=== PATIENT | female | born 1955 | race Caucasian/White ===

== ENCOUNTER 2017-12-03 16:27 | Observation (INO) ==
--- NOTE | 2017-12-03 17:02 | Emergency Department Note ---
Disposition Clinical Impression: Hyperglycemia, Generalized weakness Urinary tract infection Qualifiers: Urinary tract infection type: acute cystitis Hematuria presence: without hematuria Qualified Code(s): N30.00 - Acute cystitis without hematuria Disposition: Admitted As Inpatient Condition: Fair Referrals: Jesi Ge CNP [Primary Care Provider] - Time of Disposition: 18:07 Weakness HPI - General Chief complaint: ED General Medical Stated complaint: decreased energy, feeling tired Time Seen by Provider: 12/03/17 16:56 Source: patient Mode of arrival: private vehicle Limitations: no limitations Nursing Notes Reviewed: Yes Vital Signs Reviewed: Yes - History of Present Illness HPI Narrative: Patient has been sent here from her family doctor's office. She probably has been feeling poorly for about a month. She is noted in the doctor's office to have a hemoglobin A1c of 12.2. Her blood pressure standing was 102/60 with a heart rate of 71, sitting up blood pressure of 90/54 and a heart rate 72 and standing a blood pressure of 80/45. There are concerned for her dizziness with standing with the postural hypotension and advised her to come in for evaluation. They note she does have a history of significant hypertension and diabetes. They could not identify any other localizing complaints with her other than fatigue, dizziness and occasional headaches. Patient arrives to our emergency department stating that she has decreased energy and "just feels blah". She states this has been ongoing for a month. She has had decreased appetite and has lost about 14 pounds. She admits to feeling dizzy with standing but states she has not passed out or fallen. She denies any chest pain, palpitations or increased shortness of breath. She denies cough or fevers but has had some chills. She denies abdominal pain, nausea, vomiting or diarrhea. She denies bloody or black stools. She admits to occasional constipation. She denies any urinary complaints including increased frequency or dysuria or urgency. She denies increased thirst but has been drinking a lot per usual. She denies any headache or visual changes at this time but has had some headaches over the weeks. She has no localized numbness, tingling or weakness. She states she feels "weak all over". She denies episodes like this before. She denies any change in medications. She states throughout this month her blood sugars have been running "high" such that the most recent she had was 465. She has not had any adjustment of her diabetic medicines and states she has been taking them regularly. Patient does have history of previous DVT for which she is on Eliquis. Pt Subjective Complaint: generalized weakness/fatigue Onset (ago): week(s) Duration: constant, gradually worsening Location: generalized Pain Scale: 0 Improves with: none Worsens with: exertion Associated symptoms: Reports: loss of appetite. Denies: chest pain, confusion, dark stools, diaphoresis, dysuria, easy bruising, fever/chills, headaches, nausea/vomiting, myalgias, rash, shortness of breath, syncope - Related Data Home Medications Medication Instructions Recorded Confirmed Aspirin 81 mg PO DAILY 04/20/16 12/03/17 Gabapentin [Neurontin] 100 mg PO TID 04/20/16 12/03/17 Insulin ASPART [Novolog Flexpen] 30 unit SQ TIDWM MDD per sliding 04/20/1612/03 scale Metoprolol XL (24 HR) Succ [Toprol 25 mg PO DAILY 04/20/16 12/03/17 Xl] Nitroglycerin [Nitrostat] 0.4 mg SL AD PRN 04/20/16 12/03/17 Rosuvastatin Calcium [Crestor] 40 mg PO DAILY 04/20/16 12/03/17 Apixaban [Eliquis] 5 mg PO BID 05/29/16 12/03/17 Atarax 25 - 50 mg PO HS 08/02/16 12/03/17 Lantus Solostar 55 units SQ HS 08/02/16 12/03/17 Nexium 40 mg PO DAILY 08/02/16 12/03/17 Insulin LISPRO [HumaLOG] 5 units SQ TIDWM PRN 06/19/17 06/19/17 Citalopram Hydrobromide 10 mg PO DAILY 12/03/17 12/03/17 [Citalopram HBr] Previous Rx's Medication Instructions Recorded OxyCODONE/APAP 5/325 [Percocet 1 each PO Q4HR PRN #30 tablet 06/07/16 5/325 MG] HYDROcodone/Acet 5/325 mg [[place] 1 tab PO Q4H PRN 2 Days #10 tab 06/19/17 5-325 mg] Allergies Allergy/AdvReac Type Severity Reaction Status Date / Time iodine Allergy Hives Verified 12/03/17 16:28 tramadol AdvReac Vomiting Verified 12/03/17 16:28 bandaids AdvReac Redness of Uncoded 12/03/17 16:28 Skin All systems ED: reviewed and negative except as stated. Past Medical History - Past Medical History Attestation: Yes The following information was validated with the patient. Source: patient, nursing notes reviewed, other (Family care provider) Medical history: Reports: arthritis, coronary artery disease, DVT, diabetes, GERD, hyperlipidemia, hypertension Surgical history: Reports: coronary bypass (CABG), hysterectomy, other (Ovarian cystectomy) Psychiatric history: Reports: no psych history - Social History Smoking Status: Never smoker Smokeless Tobacco Status: No Alcohol use: Reports: occasionally Drug use: Reports: none Physical Exam - General Limitations: no limitations General appearance: alert, in no apparent distress - Head Head exam: atraumatic, normocephalic, normal inspection - Eye Eye exam: Present: normal appearance, PERRL, EOMI. Absent: scleral icterus, conjunctival injection - ENT ENT exam: normal exam, normal oropharynx, mucous membranes moist - Neck Neck exam: Present: normal inspection, full ROM, trachea midline - Chest Chest inspection: Present: normal inspection, symmetric chest wall rise - Respiratory Respiratory exam: Present: normal lung sounds bilaterally. Absent: respiratory distress, wheezes, prolonged expiratory phase - Cardiovascular Cardiovascular exam: Present: regular rate, normal rhythm, normal heart sounds. Absent: tachycardia - Abdominal Exam Abdominal exam: Present: soft, Non-Tender, normal bowel sounds. Absent: tenderness, distention, guarding, rebound, rigidity - Extremities Exam Extremities exam: Present: normal inspection, full ROM, normal capillary refill. Absent: tenderness, pedal edema, calf tenderness - Expanded Lower Extremity Exam Neurovascular/Tendon exam: Present: normal capillary refill. Absent: motor deficit, sensory deficit, tendon deficit Gait: observed and normal - Back Exam Back exam: Present: normal inspection, full ROM. Absent: tenderness, CVA tenderness (R), CVA tenderness (L) - Neurological Exam Neurological exam: Present: alert, oriented X3, normal gait - Psychiatric Psychiatric exam: Present: normal affect, normal mood. Absent: agitated, anxious - Skin Skin exam: Present: warm, dry, intact, normal color. Absent: rash, diaphoresis , pallor Course Course Narrative: 170: After extensive history on the patient does sound like her main problem will be diabetes out of control. With this she states she has had weight loss and persistent readings of "high" on her blood sugar monitor at home for about a month. She has been written for a metabolic evaluation with a urinalysis and Accu-Chek. She has already had a hemoglobin A1c markedly elevated at 12.2 at the doctor's office. If she continues to show significant hyperglycemia here will need to initiate coverage and likely IV fluids. 180: Ears discussed with the patient and Dr. Garcia. She has been brought in with verbal orders for observation, antibiotic treatment and continuation of IV fluids. Vital Signs Temperature 97.5 F L 12/03/17 16:36 Pulse Rate 80 12/03/17 16:36 Respiratory Rate 16 12/03/17 16:36 Blood Pressure 112/65 12/03/17 16:36 O2 Sat by Pulse Oximetry 93 12/03/17 16:36 Temperature 97.5 F L 12/03/17 16:36 Pulse Rate 67 12/03/17 17:39 Respiratory Rate 18 12/03/17 17:39 Blood Pressure 134/63 12/03/17 17:39 O2 Sat by Pulse Oximetry 97 12/03/17 17:39 Oxygen Delivery Oxygen Delivery Room Air Weakness - Differential Diagnosis Differential Diagnosis: Likely: anemia, sepsis/infection, dehydration, medication effect, metabolic - Medical Records Medical records reviewed: Yes I reviewed the patient's medical records. - Lab Data Lab results reviewed: Yes I reviewed the patient's lab results. Result diagrams: 12/03/17 17:08 12/03/17 17:08 Lab Results 12/03/17 12/03/17 12/03/17 Range/Units 16:50 17:08 17:08 WBC 11.2 H (4.3-11.1) K/mcL RBC 4.53 (3.82-4.97) M/mcL Hgb 12.5 (11.5-15.4) g/dL Hct 38.6 (35.3-44.9) % MCV 85.2 (83.0-100.0) fL MCH 27.6 L (28.0-33.3) pg MCHC 32.4 (31.6-35.5) g/dL RDW 13.0 (11.5-14.5) % Plt Count 308 (140-400) K/mcL MPV 11.1 (9.4-12.4) fL Immature Gran % 0.3 (0-4) % Seg Neutrophils % 67.5 % Lymphocytes % 22.3 % Monocytes % 4.4 % Eosinophils % 4.9 % Basophils % 0.6 % Neutrophils # 7.6 (1.6-8.9) K/mcL Lymphocytes # 2.5 (0.6-4.6) K/mcL Monocytes # 0.5 (0.0-1.3) K/mcL Eosinophils # 0.6 (0.0-0.6) K/mcL Basophils # 0.1 (0.0-0.2) K/mcL Sodium 134 L (136-145) mEq/L Potassium 4.1 (3.5-5.1) mEq/L Chloride 100 (98-107) mEq/L Carbon Dioxide 25 (23-29) mEq/L BUN 29 H (8-23) mg/dL Creatinine 1.62 H (0.60-1.20) mg/dL Est GFR ( Amer) 39 L (> 60) Est GFR (Non-Af Amer) 32 L (> 60) BUN/Creatinine Ratio 18 (6-26) Glucose 260 H (70-105) mg/dL Calculated Osmolality 293 (280-300) Calcium 9.9 (8.6-10.3) mg/dL Total Bilirubin 0.6 (0.3-1.0) mg/dL Direct Bilirubin 0.1 (0.0-0.2) mg/dL Indirect Bilirubin 0.5 (0.0-1.2) mg/dL AST 19 (13-39) Units/L ALT 18 (7-52) Units/L Alkaline Phosphatase 52 (34-104) Units/L Troponin I < 0.03 (< 0.04) ng/mL Serum Total Protein 7.9 (6.4-8.9) g/dL Albumin 4.0 (3.5-5.7) g/dL Globulin 3.9 H (2.4-3.5) g/dL Albumin/Globulin Ratio 1.0 L (1.1-2.2) Urine Color Yellow (Yellow) Urine Clarity Cloudy A (Clear) Urine pH 5.0 (5.0-8.0) pH Units Ur Specific [place] >= 1.030 H (1.010-1.025) Urine Protein >=300 H (Neg-Trace) mg/dL Urine Glucose (UA) 100 H (Normal) mg/dL Urine Ketones Negative (Negative) mg/dL Urine Blood Small H (Negative) Urine Nitrite Negative (Negative) Urine Bilirubin Small H (Negative) Urine Urobilinogen Normal (Normal) mg/dL Ur Leukocyte Esterase Trace H (Negative) Urine Microscopic RBC 0-3 (0-3) per hpf Urine Microscopic WBC 30-50 H (0-3) per hpf Ur Squamous Epith Cells Many H (None-Few) per lpf Calcium Oxalate Crystal Present Urine Bacteria Many H (None-Few) per hpf Hyaline Casts Few (None-Few) per lpf Granular Casts Many H (None Seen) per lpf Urine Yeast Moderate H (None Seen) per hpf Ur Culture Indicated? NO. A (NO) - EKG Data EKG attestation: Yes I reviewed and interpreted this EKG. EKG shows normal: sinus rhythm, axis, intervals, QRS complexes Rate: normal (70) T wave inversions noted in: I, aVL, v2 Interpretation: no acute changes, nonspecific ST-T wave changes
[2017-12-03 17:06] LABS: Bilirubin,Urine Small (Negative); Blood,Urine Small (Negative); Clarity,Urine Cloudy (Clear); Color,Urine Yellow (Yellow); Glucose,Urine (UA) 100 mg/dL (Normal); Ketones,Urine Negative (Negative); Leukocyte Esterase,Urine Trace (Negative); Nitrite,Urine Negative (Negative); Protein,Urine >=300 mg/dL (Neg-Trace); Specific Gravity,Urine >= 1.030 (1.010-1.025); Urobilinogen,Urine Normal (Normal)
[2017-12-03] MEDS ORDERED: 0.9 % Sodium Chloride 1,000 ML IVC ONE (17:15)
[2017-12-03 17:16] LABS: Basophils # 0.1 K/mcL (0.0-0.2); Basophils % 0.6 %; Eosinophils # 0.6 K/mcL (0.0-0.6); Eosinophils % 4.9 %; Hematocrit 38.6 % (35.3-44.9); Hemoglobin 12.5 g/dL (11.5-15.4); Immature Granulocytes % 0.3 % (0-4); Lymphocytes # 2.5 K/mcL (0.6-4.6); Lymphocytes % 22.3 %; Mean Corpuscular HGB Conc 32.4 g/dL (31.6-35.5); Mean Corpuscular Hemoglobin 27.6 pg (28.0-33.3); Mean Corpuscular Volume 85.2 fL (83.0-100.0); Mean Platelet Volume 11.1 fL (9.4-12.4); Monocytes # 0.5 K/mcL (0.0-1.3); Monocytes % 4.4 %; Neutrophils # 7.6 K/mcL (1.6-8.9); Platelet Count 308 K/mcL (140-400); Red Blood Count 4.53 M/mcL (3.82-4.97); Segmented Neutrophils % 67.5 %
[2017-12-03 17:18] LABS: Bacteria,Urine Many per hpf (None-Few); Granular Casts,Urine Many per lpf (None Seen); Hyaline Casts,Urine Few per lpf (None-Few); RBC,Urine 0-3 per hpf (0-3); Squamous Epithelial Cell,Urine Many per lpf (None-Few); WBC,Urine 30-50 per hpf (0-3); Yeast,Urine Moderate per hpf (None Seen)
[2017-12-03 17:19] LABS: Calcium Oxalate Crystals,Urine Present
[2017-12-03] MEDS ORDERED: cefTRIAXone 2,000 MG in 0.9 % Sodium Chloride Mini Bag 100 ML IVPB ONE (17:29)
[2017-12-03] MEDS ORDERED: Insulin Regular, Human 100 UNIT/ML SQ ONE (17:30)
[2017-12-03 17:37] LABS: Alanine Aminotransferase 18 Units/L (7-52); Alkaline Phosphatase 52 Units/L (34-104); Aspartate Amino Transferase 19 Units/L (13-39); BUN/Creatinine Ratio 18 (6-26); Bilirubin,Direct 0.1 mg/dL (0.0-0.2); Bilirubin,Indirect 0.5 mg/dL (0.0-1.2); Bilirubin,Total 0.6 mg/dL (0.3-1.0); Blood Urea Nitrogen 29 mg/dL (8-23); Calcium 9.9 mg/dL (8.6-10.3); Carbon Dioxide 25 mEq/L (23-29); Chloride 100 mEq/L (98-107); Globulin 3.9 g/dL (2.4-3.5); Glucose 260 mg/dL (70-105); Osmolality,Calculated 293 (280-300); Potassium 4.1 mEq/L (3.5-5.1); Sodium 134 mEq/L (136-145); Total Protein 7.9 g/dL (6.4-8.9); eGFR For Non-African Americans 32 (> 60)
[2017-12-03 17:43] LABS: Troponin I < 0.03 ng/mL (< 0.04)
[2017-12-03] MEDS ORDERED: Naloxone 0.4 MG/ML INJ IVP PRN (18:21)
[2017-12-03] MEDS ORDERED: *HR* Dextrose 50 % in Water (Syg) 50 ML SYRINGE IVP PRN (18:21)
[2017-12-03] MEDS ORDERED: D5% in Water 1,000 ML IVC PRN (18:21)
[2017-12-03] MEDS ORDERED: Nitroglycerin 0.4 MG TAB.SUBL SL PRN (18:21)
[2017-12-03] MEDS ORDERED: *HR* OxyCODONE/APAP 5/325 TABLET PO PRN (18:21)
[2017-12-03] MEDS ORDERED: Dextrose Gel 15 GM/37.5 ML TUBE PO PRN ×2 (18:21)
[2017-12-03] MEDS: 0.9 % Sodium Chloride 1,000 ML IVC SCH (20:55)
[2017-12-03] MEDS: Gabapentin 100 MG CAPSULE PO SCH (20:56)
[2017-12-03] MEDS: hydrOXYzine pamoate 25 MG CAPSULE PO SCH (20:56)
[2017-12-03] MEDS: Apixaban 5 MG TABLET PO SCH (20:56)
[2017-12-03] MEDS ORDERED: Insulin DETEMIR 100 UNIT/ML per UNIT SQ ONE (21:00)
[2017-12-04] MEDS: 0.9 % Sodium Chloride 1,000 ML IVC SCH (05:20)
[2017-12-04] MEDS ORDERED: Insulin LISPRO 300 UNITS/3 ML VIAL SQ SCH ×3 (07:30→08:18)
[2017-12-04] MEDS ORDERED: Metoprolol XL (24 HR) Succ 25 MG TAB.ER.24H PO SCH (09:00)
[2017-12-04] MEDS ORDERED: cefTRIAXone 2,000 MG in 0.9 % Sodium Chloride Mini Bag 100 ML IVPB SCH (09:00)
[2017-12-04] MEDS: Aspirin 81 MG TAB.CHEW PO SCH (09:01)
[2017-12-04] MEDS: Gabapentin 100 MG CAPSULE PO SCH ×3 (09:02→22:38)
[2017-12-04] MEDS: Apixaban 5 MG TABLET PO SCH ×2 (09:02→22:38)
[2017-12-04] MEDS: Insulin LISPRO 300 UNITS/3 ML VIAL SQ SCH ×3 (09:14→16:59)
--- NOTE | 2017-12-04 11:46 | Internal Med History&Physical ---
Date of Encounter: 12/04/17 Time of Encounter: 11:10 Assessment and Plan (1) Orthostatic hypotension Current visit: Yes Status: Acute Probably multifactorial etiology including antihypertensive medication and dehydration. IV fluids have been ordered and antihypertensive medication will be held. Orthostatic vital signs will be rechecked in a.m. (2) Azotemia Current visit: Yes Status: Acute IV fluids have been ordered. Labs will be rechecked in a.m. (3) DM type 2 (diabetes mellitus, type 2) Current visit: Yes Status: Chronic Check hemoglobin A1c in a.m. Continue Levemir/Lantus and Accu-Cheks with SSI. 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 Urine appeared to be contaminated specimen. She was started empirically on Rocephin in emergency room. Qualifiers: Urinary tract infection type: acute cystitis Hematuria presence: without hematuria Qualified Code(s): N30.00 - Acute cystitis without hematuria Internal Medicine - H&P: HPI Chief complaint: Hypotension, weakness Admitted From: Emergency Dept Plans for Post Hospital Care: Home History of present illness: Ms. Martino is a 62 year old female who was sent from her PCP office to emergency room for evaluation after she was found at a routine office visit to have orthostatic hypotensive. The emergency room report states blood pressure decreased from 102/60 sitting to 80/45 standing up. She was evaluated emergency room and found to have acute on chronic azotemia and possible UTI. She was admitted to [facility] floor for ongoing care needs. Cardiovascular history is significant for hypertension. She had 2 vessel CABG May 2016 with STOCK to LAD and SVG to RCA. Echocardiogram April 2016 showed LVEF of 60-65% with mild LV diastolic dysfunction and E/A ratio of 0.6. No significant valvular abnormalities were seen. There was reported LAE but no left atrial measurements were recorded. She reports she had DVT following the CABG surgery and was placed on Eliquis which has not been discontinued. She denies pulmonary embolus. Past Med Surg Social Fam HX - Past Medical History Medical history: arthritis, coronary artery disease, DVT, diabetes, GERD, hyperlipidemia, hypertension Additional medical history: HTN, Hyperlipidemia, L peroneal DVT, lower extremity neuropathy Psychiatric history: no psych history - Past Surgical History Surgical History: coronary bypass (CABG), hysterectomy, other Additional surgical history: ovarian cyst removal. heart bypass - Social History Smoking Status: Never smoker Smokeless Tobacco Status: No Alcohol use: occasionally Drug use: none Internal Medicine - H&P: Meds Aspirin 81 mg PO DAILY 04/20/16 [History] Gabapentin [Neurontin] 100 mg PO TID 04/20/16 [History] Insulin ASPART [Novolog Flexpen] 30 unit SQ TIDWM MDD per sliding scale [History] Metoprolol XL (24 HR) Succ [Toprol Xl] 25 mg PO DAILY 04/20/16 [History] Nitroglycerin [Nitrostat] 0.4 mg SL AD PRN 04/20/16 [History] Rosuvastatin Calcium [Crestor] 40 mg PO DAILY 04/20/16 [History] Apixaban [Eliquis] 5 mg PO BID 05/29/16 [History] OxyCODONE/APAP 5/325 [Percocet 5/325 MG] 1 each PO Q4HR PRN #30 tablet 06/07/16 [Rx] Atarax 25 - 50 mg PO HS 08/02/16 [History] Lantus Solostar 55 units SQ HS 08/02/16 [History] Nexium 40 mg PO DAILY 08/02/16 [History] HYDROcodone/Acet 5/325 mg [[place] 5-325 mg] 1 tab PO Q4H PRN 2 Days #10 tab 06/19 [Rx] Insulin LISPRO [HumaLOG] 5 units SQ TIDWM PRN 06/19/17 [History] Citalopram Hydrobromide [Citalopram HBr] 10 mg PO DAILY 12/03/17 [History] 3 Allergy/AdvReac Type Severity Reaction Status Date / Time iodine Allergy Hives Verified 12/03/17 16:28 tramadol AdvReac Vomiting Verified 12/03/17 16:28 bandaids AdvReac Redness of Uncoded 12/03/17 16:28 Skin All Systems PM: A 10-system review of systems was performed and is negative for pertinent findings except as documented above in the HPI. Review of systems: Gen.: She states her weight has been stable the past few months Cardiovascular: As per history of present illness Respiratory: She is a lifelong nonsmoker. She reports she has oxygen at home but is uncertain of the qualifying diagnosis. She has STEPHANI and has used CPAP at bedtime for approximately one year. GI: She has GERD. She denies disorders of her liver gallbladder or exocrine pancreas : She denies hematuria dysuria or kidney stones. She was unaware she had chronic kidney disease. Neurologic: She denies large distribution strokes or seizures. Endocrine: She was diagnosed with DM 2 approximate 2013. She has hyperlipidemia but denies thyroid disease. Hematology/oncology: She denies blood disorders cancers or anemia Psychiatric: She has depression but denies anxiety or other mental health issues [place] skeletal: She has DJD and significant right hip. She denies gout or other bone joint or muscle disorders. - Constitutional Vitals: Temp Pulse Resp BP Pulse Ox 98.0 F 66 16 119/49 92 12/04/17 06:37 12/04/17 06:37 12/04/17 06:37 12/04/17 06:37 12/04/17 06:37 Exam: Gen.: She is a well-developed well-nourished female resting comfortably in bed who appears in no acute distress at present time. HEENT: Head is atraumatic and normal cephalic. Eyes: EOMI. There is no scleral icterus. Mouth: Mucosa is moist. Neck: Supple and nontender. There is no thyromegaly or adenopathy noted. Heart: Regular without murmurs gallops or ectopics Lungs: No wheezes or crackles are heard. Abdomen: Soft and nontender. No masses or guarding are noted. Extremities: There is no cyanosis edema or clubbing noted. Dorsalis pedis and posterior tibial pulses are 1-2 over 2 bilaterally. Neurologic: Mental status: She is talkative and seems to be a reliable historian. Cranial nerves: Smile is symmetric. Forehead wrinkles bilaterally. Tongue protrudes midline. EOMI. Motor: There is no pronator drift. Cerebellar: Finger to nose is intact bilaterally. Skin: Warm and dry Internal Med - H&P Results - Labs CBC & Chem 7: 12/03/17 17:08 12/03/17 17:08
[2017-12-04] MEDS ORDERED: cefTRIAXone 2,000 MG in Water for inj. (sterile) 20 ML 20 ML IVP SCH (17:00)
[2017-12-04] MEDS ORDERED: Insulin DETEMIR 100 UNIT/ML X5UNITS SQ SCH ×2 (21:00)
[2017-12-04] MEDS: Lactobacillus 1 EACH CAP.SPRINK PO SCH (22:38)
[2017-12-04] MEDS: hydrOXYzine pamoate 25 MG CAPSULE PO SCH (22:39)
[2017-12-04] MEDS ORDERED: Permethrin Cream Rinse 60 ML LIQUID TP ONE (23:31)
[2017-12-05 06:11] LABS: Basophils # 0.1 K/mcL (0.0-0.2); Basophils % 0.8 %; Eosinophils # 0.4 K/mcL (0.0-0.6); Eosinophils % 6.8 %; Hematocrit 33.3 % (35.3-44.9); Hemoglobin 10.8 g/dL (11.5-15.4); Immature Granulocytes % 0.3 % (0-4); Lymphocytes # 2.2 K/mcL (0.6-4.6); Lymphocytes % 34.8 %; Mean Corpuscular HGB Conc 32.4 g/dL (31.6-35.5); Mean Corpuscular Hemoglobin 27.9 pg (28.0-33.3); Mean Platelet Volume 11.2 fL (9.4-12.4); Monocytes # 0.4 K/mcL (0.0-1.3); Neutrophils # 3.2 K/mcL (1.6-8.9); Platelet Count 214 K/mcL (140-400); Red Blood Count 3.87 M/mcL (3.82-4.97); Red Cell Distribution Width 12.9 % (11.5-14.5); Segmented Neutrophils % 50.3 %
[2017-12-05 06:26] LABS: Potassium 3.9 mEq/L (3.5-5.1)
[2017-12-05] MEDS: Aspirin 81 MG TAB.CHEW PO SCH (09:33)
[2017-12-05] MEDS: Gabapentin 100 MG CAPSULE PO SCH ×2 (09:33→15:30)
[2017-12-05] MEDS: Apixaban 5 MG TABLET PO SCH (09:34)
[2017-12-05] MEDS: Insulin LISPRO 300 UNITS/3 ML VIAL SQ SCH ×2 (09:35→12:17)
[2017-12-05] MEDS: Lactobacillus 1 EACH CAP.SPRINK PO SCH (09:35)
[2017-12-05 09:43] LABS: Estimated Average Glucose 286 mg/dl; Hemoglobin A1C 11.6 %
[2017-12-05 15:09] VITALS: BP 134/57
--- NOTE | 2017-12-05 15:32 | Discharge Summary ---
Date of Encounter: 12/05/17 Time of Encounter: 15:20 - Discharge Diagnosis (1) Orthostatic hypotension Priority: Primary Status: Resolved (2) DM type 2 (diabetes mellitus, type 2) Priority: Secondary Status: Chronic Qualifiers: Diabetes mellitus watermelon inspector insulin use: with usp use Diabetes mellitus complication status: with kidney complications Diabetes mellitus complication detail: with chronic kidney disease Chronic kidney disease stage : stage 3 (moderate) Qualified Code(s): E11.22 - Type 2 diabetes mellitus with diabetic chronic kidney disease; N18.3 - Chronic kidney disease, stage 3 ( moderate); Z79.4 - long-term (current) use of insulin (3) Urinary tract infection Priority: Secondary Status: Acute Qualifiers: Urinary tract infection type: acute cystitis Hematuria presence: without hematuria Qualified Code(s): N30.00 - Acute cystitis without hematuria (4) Acute on chronic kidney failure Priority: Secondary Status: Chronic Qualifiers: Chronic kidney disease stage: stage 3 (moderate) Qualified Code(s): N17.9 - Acute kidney failure, unspecified; N18.3 - Chronic kidney disease, stage 3 ( moderate) Hospital course: Ms. Martion is a 62 year old female who was sent from her PCP office to emergency room for evaluation after she was found at a routine office visit to have orthostatic hypotensive. The emergency room report states blood pressure decreased from 102/60 sitting to 80/45 standing up. She was evaluated emergency room and found to have acute on chronic azotemia and possible UTI. She was admitted to [facility] floor for ongoing care needs. Initial orders were written by the emergency room physician. I saw her on December 04 and performed a history and physical. She was started on Rocephin in emergency room. This was continued with lactobacillus. She remained asymptomatic. Antibiotics will not be continued at discharge. IV fluids were given and orthostatic vital signs showed no decrease in blood pressure on the day of discharge. Azotemia improved with BUN and creatinine decreasing to 22 and 1.18 respectively by day of discharge with estimated GFR 46. From review of available lab records it appears she has chronic kidney disease stage III. Her PCP can monitor this and refer to clinical safety manager as needed. Hemoglobin A1c returned elevated 11.6%. Her PCP can adjust diabetic medications. When I saw her December 04 she felt improved and stable for discharge home. She will follow with her PCP Jesi Ge CNP within 1 week. - Time Spent with Patient Total time spent providing and/or coordinating discharge services: - Discharge Medications Home Medications: Aspirin 81 mg PO DAILY 04/20/16 [History] Gabapentin [Neurontin] 100 mg PO TID 04/20/16 [History] Insulin ASPART [Novolog Flexpen] 30 unit SQ TIDWM MDD per sliding scale [History] Metoprolol XL (24 HR) Succ [Toprol Xl] 25 mg PO DAILY 04/20/16 [History] Nitroglycerin [Nitrostat] 0.4 mg SL AD PRN 04/20/16 [History] Rosuvastatin Calcium [Crestor] 40 mg PO DAILY 04/20/16 [History] Apixaban [Eliquis] 5 mg PO BID 05/29/16 [History] OxyCODONE/APAP 5/325 [Percocet 5/325 MG] 1 each PO Q4HR PRN #30 tablet 06/07/16 [Rx] Atarax 25 - 50 mg PO HS 08/02/16 [History] Lantus Solostar 55 units SQ HS 08/02/16 [History] Nexium 40 mg PO DAILY 08/02/16 [History] HYDROcodone/Acet 5/325 mg [[place] 5-325 mg] 1 tab PO Q4H PRN 2 Days #10 tab 06/19 [Rx] Insulin LISPRO [HumaLOG] 5 units SQ TIDWM PRN 06/19/17 [History] Citalopram Hydrobromide [Citalopram HBr] 10 mg PO DAILY 12/03/17 [History] Allergies/Adverse Reactions: 3 Allergy/AdvReac Type Severity Reaction Status Date / Time iodine Allergy Hives Verified 12/03/17 16:28 tramadol AdvReac Vomiting Verified 12/03/17 16:28 bandaids AdvReac Redness of Uncoded 12/03/17 16:28 Skin Date of admission: 12/03/17 18:17 Primary care physician: Jesi Ge CNP Consults: 12/03/17 22:44 Consult to Nutrition [CONS] Routine Comment: Consulting Provider: NUTRITION Reason for Dietary Consult: MST Score Consult to Environmental Scientists [CONS] Routine Reason for SW Consult: Pt is diabetic and states being unable to afford foods that are appropriate for her diagnosis. Pt has financial concerns and states frequently not having enough food to eat as other family members "Eat all of the food." - Constitutional Vitals: Temp Pulse Resp BP Pulse Ox 98.2 F 65 14 134/57 96 12/05/17 15:08 12/05/17 15:08 12/05/17 15:08 12/05/17 15:08 12/05/17 15:08 - Patient Status Disposition: Home, Self-Care Condition: Fair - Discharge Instructions Follow Up With: Jesi Ge, DARKLIGHT INSPECTOR [Primary Care Provider] - 1 week Forms: ED Satisfaction Letter, Work/School Release - Diet and Activity Activity: resume usual activities as tolerated Diet: diabetic diet
--- NOTE | 2017-12-08 15:50 | Electrocardiograph Report ---
[address] [place], [place] [address] Test Date: 2017-12-03 Pat Name: Sandra Martino Department: [id number] Room: [facility] Gender: F Research Associate Molecular Biology: [id number] : 1955 Requested By: Ronald Carlson Order Number: [id number] Reading MD: Shahab Abdi Measurements Intervals [place] Rate: 70 P: 32 CA: 156 QRS: 62 QRSD: 94 T: 118 QT: 410 QTc: 430 Interpretive Statements SINUS RHYTHM POSSIBLE INFERIOR MYOCARDIAL INFARCTION, PROBABLY OLD MODERATE T-WAVE ABNORMALITY, CONSIDER LATERAL ISCHEMIA Electronically Signed On 12-08-2017 15:48:06 EDT by Shahab Abdi
== END 2017-12-05 17:45 | disposition home or self-care (01) ==
LOC: INPPIK 16:27 → EMEROOPIK 16:27 → INPPIK 19:59
PROVIDERS: ADMIT Internal Medicine; ATTEND Internal Medicine

== ENCOUNTER 2020-05-03 11:00 | Inpatient (IN) ==
[2020-05-03] MEDS ORDERED: *HR* HYDROcodone/Acet 5/325 mg TABLET PO ONE (11:20)
[2020-05-03] MEDS ORDERED: 0.9 % Sodium Chloride 1,000 ML IVC SCH (11:30)
[2020-05-03 11:53] LABS: Basophils % 0.3 %; Eosinophils # 0.2 K/mcL (0.0-0.6); Eosinophils % 1.5 %; Hematocrit 33.8 % (35.3-44.9); Immature Granulocytes % 0.8 % (0-4); Lymphocytes # 1.6 K/mcL (0.6-4.6); Lymphocytes % 11.3 %; Mean Corpuscular HGB Conc 32.5 g/dL (31.6-35.5); Mean Corpuscular Hemoglobin 28.5 pg (28.0-33.3); Mean Corpuscular Volume 87.6 fL (83.0-100.0); Mean Platelet Volume 11.3 fL (9.4-12.4); Monocytes # 0.8 K/mcL (0.0-1.3); Monocytes % 5.3 %; Neutrophils # 11.7 K/mcL (1.6-8.9); Platelet Count 222 K/mcL (140-400); Red Blood Count 3.86 M/mcL (3.82-4.97); Red Cell Distribution Width 12.1 % (11.5-14.5); Segmented Neutrophils % 80.8 %; White Blood Count 14.5 K/mcL (4.3-11.1)
[2020-05-03 12:09] LABS: Potassium 4.5 mEq/L (3.5-5.1)
[2020-05-03] MEDS ORDERED: Naloxone 0.4 MG/ML INJ IVP PRN (18:47)
[2020-05-03] MEDS ORDERED: Nitroglycerin 0.4 MG TAB.SUBL SL PRN (18:47)
[2020-05-03] MEDS ORDERED: Insulin LISPRO 300 UNITS/3 ML VIAL SUBQ PRN (18:47)
[2020-05-03] MEDS ORDERED: *HR* HYDROcodone/Acet 5/325 mg TABLET PO PRN ×2 (18:49→18:52)
[2020-05-03] MEDS ORDERED: Insulin DETEMIR 100 UNIT/ML per UNIT SUBQ ONE (21:00)
[2020-05-03] MEDS ORDERED: Lactobacillus 1 EACH CAP.SPRINK PO SCH (21:00)
[2020-05-03] MEDS: Apixaban 5 MG TABLET PO SCH (22:39)
[2020-05-03] MEDS: Gabapentin 100 MG CAPSULE PO SCH (22:39)
[2020-05-03] MEDS: 0.9 % Sodium Chloride 1,000 ML IVC SCH (22:40)
[2020-05-03] MEDS: Lactobacillus 1 EACH CAP.SPRINK PO SCH (22:40)
[2020-05-04] MEDS: Insulin LISPRO 300 UNITS/3 ML VIAL SUBQ SCH ×4 (03:23→16:59)
[2020-05-04 06:31] LABS: Basophils % 0.5 %; Eosinophils # 0.5 K/mcL (0.0-0.6); Eosinophils % 6.1 %; Hematocrit 30.6 % (35.3-44.9); Immature Granulocytes % 0.1 % (0-4); Lymphocytes % 23.6 %; Mean Corpuscular Hemoglobin 27.5 pg (28.0-33.3); Mean Corpuscular Volume 88.7 fL (83.0-100.0); Mean Platelet Volume 11.7 fL (9.4-12.4); Monocytes # 0.7 K/mcL (0.0-1.3); Monocytes % 8.5 %; Neutrophils # 5.1 K/mcL (1.6-8.9); Platelet Count 184 K/mcL (140-400); Red Blood Count 3.45 M/mcL (3.82-4.97); Red Cell Distribution Width 12.1 % (11.5-14.5); Segmented Neutrophils % 61.2 %; White Blood Count 8.3 K/mcL (4.3-11.1)
[2020-05-04 06:38] LABS: Hemoglobin 9.5 g/dL (11.5-15.4)
[2020-05-04 06:53] LABS: Calcium 8.2 mg/dL (8.6-10.3); Potassium 3.9 mEq/L (3.5-5.1)
[2020-05-04] MEDS: 0.9 % Sodium Chloride 1,000 ML IVC SCH (08:28)
[2020-05-04] MEDS: Metoprolol XL (24 HR) Succ 25 MG TAB.ER.24H PO SCH (08:29)
[2020-05-04] MEDS: Aspirin 81 MG TAB.CHEW PO SCH (08:29)
[2020-05-04] MEDS: Apixaban 5 MG TABLET PO SCH ×2 (08:29→20:54)
[2020-05-04] MEDS: Gabapentin 100 MG CAPSULE PO SCH ×3 (08:30→20:55)
[2020-05-04] MEDS: Lactobacillus 1 EACH CAP.SPRINK PO SCH ×2 (08:30→20:49)
[2020-05-04] MEDS ORDERED: *HR* Dextrose 50 % in Water (Vial) 50 ML VIAL IVP PRN (08:53)
[2020-05-04] MEDS ORDERED: D5% in Water 1,000 ML IVC PRN (08:53)
[2020-05-04] MEDS ORDERED: Dextrose Gel 15 GM/37.5 ML TUBE PO PRN ×2 (08:53)
[2020-05-04] MEDS: Piperacillin/Tazobactam 3.375 GM in 0.9 % Sodium Chloride Mini Bag 100 ML IVPB SCH ×2 (11:36→17:27)
[2020-05-04] MEDS ORDERED: Neosporin OINT 1 APPL PACKET TP PRN (13:48)
[2020-05-04] MEDS ORDERED: Insulin DETEMIR 100 UNIT/ML X5UNITS SUBQ SCH ×2 (21:00)
[2020-05-05] MEDS: Piperacillin/Tazobactam 3.375 GM in 0.9 % Sodium Chloride Mini Bag 100 ML IVPB SCH ×3 (02:43→16:28)
[2020-05-05] MEDS: 0.9 % Sodium Chloride 1,000 ML IVC SCH ×3 (02:47→14:29)
[2020-05-05 05:45] LABS: Hematocrit 27.5 % (35.3-44.9); Hemoglobin 8.7 g/dL (11.5-15.4); Mean Corpuscular HGB Conc 31.6 g/dL (31.6-35.5); Mean Corpuscular Hemoglobin 27.7 pg (28.0-33.3); Mean Corpuscular Volume 87.6 fL (83.0-100.0); Mean Platelet Volume 11.6 fL (9.4-12.4); Platelet Count 219 K/mcL (140-400); Red Blood Count 3.14 M/mcL (3.82-4.97); Red Cell Distribution Width 12.3 % (11.5-14.5); White Blood Count 8.6 K/mcL (4.3-11.1)
[2020-05-05 06:03] LABS: Calcium 7.8 mg/dL (8.6-10.3)
[2020-05-05] MEDS: Aspirin 81 MG TAB.CHEW PO SCH (08:40)
[2020-05-05] MEDS: Lactobacillus 1 EACH CAP.SPRINK PO SCH (08:40)
[2020-05-05] MEDS: Metoprolol XL (24 HR) Succ 25 MG TAB.ER.24H PO SCH (08:41)
[2020-05-05] MEDS: Gabapentin 100 MG CAPSULE PO SCH ×2 (08:41→14:22)
[2020-05-05] MEDS: Insulin LISPRO 300 UNITS/3 ML VIAL SUBQ SCH ×3 (08:43→16:44)
[2020-05-05] MEDS: Apixaban 5 MG TABLET PO SCH (13:42)
[2020-05-05 14:47] VITALS: BP 177/76
[2020-05-05] MEDS ORDERED: Insulin DETEMIR 100 UNIT/ML X5UNITS SUBQ SCH (21:00)
== END 2020-05-05 17:30 | disposition home health service (06) | DRG 638 ==
LOC: EMEROOPIK 11:00 → INPPIK 11:00
PROVIDERS: ADMIT Family Medicine; ATTEND Family Medicine

== ENCOUNTER 2020-10-20 09:08 | Inpatient (IN) ==
[2020-10-21] MEDS ORDERED: Nitroglycerin 0.4 MG TAB.SUBL SL PRN (13:53)
[2020-10-21] MEDS ORDERED: Dextrose Gel 15 GM/37.5 ML TUBE PO PRN ×2 (14:03)
[2020-10-21] MEDS ORDERED: *HR* Dextrose 50 % in Water (Vial) 50 ML VIAL IVP PRN (14:03)
[2020-10-21] MEDS ORDERED: D5% in Water 1,000 ML IVC PRN (14:03)
[2020-10-21] MEDS: Gabapentin 100 MG CAPSULE PO SCH ×2 (17:56→21:35)
[2020-10-21] MEDS: Insulin LISPRO 300 UNITS/3 ML VIAL SUBQ SCH ×2 (17:57→21:47)
[2020-10-21] MEDS: *HR* OxyCODONE Immed Rel 5 MG TABLET PO PRN (21:34)
[2020-10-21] MEDS: Apixaban 5 MG TABLET PO SCH (21:35)
[2020-10-21] MEDS: Insulin DETEMIR 100 UNIT/ML X5UNITS SUBQ SCH (21:47)
[2020-10-21 23:10] LABS: Estimated Average Glucose 352 mg/dl; Hemoglobin A1C 13.9 %
[2020-10-22 08:26] LABS: Basophils # 0.1 K/mcL (0.0-0.2); Basophils % 0.6 %; Eosinophils # 0.6 K/mcL (0.0-0.6); Eosinophils % 6.1 %; Hematocrit 24.8 % (35.3-44.9); Hemoglobin 7.8 g/dL (11.5-15.4); Lymphocytes # 2.1 K/mcL (0.6-4.6); Lymphocytes % 21.2 %; Mean Corpuscular HGB Conc 31.5 g/dL (31.6-35.5); Mean Corpuscular Hemoglobin 27.3 pg (28.0-33.3); Mean Corpuscular Volume 86.7 fL (83.0-100.0); Mean Platelet Volume 10.2 fL (9.4-12.4); Monocytes # 0.8 K/mcL (0.0-1.3); Monocytes % 7.6 %; Neutrophils # 6.3 K/mcL (1.6-8.9); Platelet Count 397 K/mcL (140-400); Red Blood Count 2.86 M/mcL (3.82-4.97); Red Cell Distribution Width 13.3 % (11.5-14.5); Segmented Neutrophils % 63.5 %
[2020-10-22 08:30] LABS: BUN/Creatinine Ratio 31 (6-26); Blood Urea Nitrogen 29 mg/dL (8-23); Calcium 8.7 mg/dL (8.6-10.3); Carbon Dioxide 31 mEq/L (23-29); Chloride 101 mEq/L (98-107); Glucose 93 mg/dL (70-105); Osmolality,Calculated 290 (280-300); Potassium 4.7 mEq/L (3.5-5.1); Sodium 137 mEq/L (136-145); eGFR For African Americans > 60 (> 60); eGFR For Non-African Americans 59 (> 60)
[2020-10-22] MEDS: Aspirin 81 MG TAB.CHEW PO SCH (09:09)
[2020-10-22] MEDS: Gabapentin 100 MG CAPSULE PO SCH ×3 (09:09→21:30)
[2020-10-22] MEDS: Loratadine 10 MG TABLET PO SCH (09:09)
[2020-10-22] MEDS: Apixaban 5 MG TABLET PO SCH ×2 (09:09→21:31)
[2020-10-22] MEDS: Insulin LISPRO 300 UNITS/3 ML VIAL SUBQ SCH ×4 (09:10→21:31)
[2020-10-22] MEDS: Insulin DETEMIR 100 UNIT/ML X5UNITS SUBQ SCH ×2 (09:10→21:31)
[2020-10-22] MEDS: *HR* OxyCODONE Immed Rel 5 MG TABLET PO PRN (17:06)
[2020-10-23] MEDS: *HR* OxyCODONE Immed Rel 5 MG TABLET PO PRN ×2 (04:45→14:48)
[2020-10-23] MEDS: Aspirin 81 MG TAB.CHEW PO SCH (08:47)
[2020-10-23] MEDS: Apixaban 5 MG TABLET PO SCH ×2 (08:47→20:18)
[2020-10-23] MEDS: Gabapentin 100 MG CAPSULE PO SCH ×3 (08:47→20:18)
[2020-10-23] MEDS: Loratadine 10 MG TABLET PO SCH (08:47)
[2020-10-23] MEDS: Insulin DETEMIR 100 UNIT/ML X5UNITS SUBQ SCH (08:48)
[2020-10-23] MEDS: Insulin LISPRO 300 UNITS/3 ML VIAL SUBQ SCH ×4 (08:48→20:19)
[2020-10-23] MEDS ORDERED: Insulin DETEMIR 100 UNIT/ML per UNIT SUBQ ONE (21:00)
[2020-10-24 07:41] LABS: Basophils # 0.1 K/mcL (0.0-0.2); Basophils % 0.8 %; Eosinophils # 0.6 K/mcL (0.0-0.6); Eosinophils % 7.7 %; Hematocrit 24.4 % (35.3-44.9); Hemoglobin 7.6 g/dL (11.5-15.4); Immature Granulocytes % 0.9 % (0-4); Lymphocytes # 2.1 K/mcL (0.6-4.6); Lymphocytes % 26.6 %; Mean Corpuscular HGB Conc 31.1 g/dL (31.6-35.5); Mean Corpuscular Hemoglobin 27.1 pg (28.0-33.3); Mean Corpuscular Volume 87.1 fL (83.0-100.0); Mean Platelet Volume 10.1 fL (9.4-12.4); Monocytes # 0.6 K/mcL (0.0-1.3); Monocytes % 7.1 %; Neutrophils # 4.5 K/mcL (1.6-8.9); Platelet Count 349 K/mcL (140-400); Red Cell Distribution Width 13.3 % (11.5-14.5); Segmented Neutrophils % 56.9 %; White Blood Count 7.9 K/mcL (4.3-11.1)
[2020-10-24] MEDS ORDERED: Ondansetron ODT 4 MG TAB.RAPDIS SL PRN (08:33)
[2020-10-24] MEDS: Loratadine 10 MG TABLET PO SCH (09:12)
[2020-10-24] MEDS: Gabapentin 100 MG CAPSULE PO SCH ×3 (09:12→20:35)
[2020-10-24] MEDS: Aspirin 81 MG TAB.CHEW PO SCH (09:13)
[2020-10-24] MEDS: *HR* OxyCODONE Immed Rel 5 MG TABLET PO PRN ×2 (09:13→20:35)
[2020-10-24] MEDS: Apixaban 5 MG TABLET PO SCH ×2 (09:13→20:34)
[2020-10-24] MEDS: Insulin DETEMIR 100 UNIT/ML X5UNITS SUBQ SCH ×2 (09:14→20:36)
[2020-10-24] MEDS: Insulin LISPRO 300 UNITS/3 ML VIAL SUBQ SCH ×4 (09:15→20:35)
[2020-10-25] MEDS: Insulin LISPRO 300 UNITS/3 ML VIAL SUBQ SCH ×4 (08:24→21:40)
[2020-10-25] MEDS: Gabapentin 100 MG CAPSULE PO SCH ×3 (09:22→21:39)
[2020-10-25] MEDS: Loratadine 10 MG TABLET PO SCH (09:23)
[2020-10-25] MEDS: Aspirin 81 MG TAB.CHEW PO SCH (09:23)
[2020-10-25] MEDS: *HR* OxyCODONE Immed Rel 5 MG TABLET PO PRN ×2 (09:23→16:16)
[2020-10-25] MEDS: Apixaban 5 MG TABLET PO SCH ×2 (09:23→21:40)
[2020-10-25] MEDS: Insulin DETEMIR 100 UNIT/ML X5UNITS SUBQ SCH ×2 (10:58→21:40)
[2020-10-25] MEDS: Sennosides/Docusate Sodium TABLET PO SCH (21:40)
[2020-10-26] MEDS: *HR* OxyCODONE Immed Rel 5 MG TABLET PO PRN ×4 (01:14→21:45)
[2020-10-26] MEDS: Insulin LISPRO 300 UNITS/3 ML VIAL SUBQ SCH ×4 (08:22→21:52)
[2020-10-26] MEDS: Sennosides/Docusate Sodium TABLET PO SCH ×2 (08:29→21:52)
[2020-10-26] MEDS: Aspirin 81 MG TAB.CHEW PO SCH (08:29)
[2020-10-26] MEDS: Apixaban 5 MG TABLET PO SCH ×2 (08:29→21:46)
[2020-10-26] MEDS: Gabapentin 100 MG CAPSULE PO SCH ×3 (08:29→21:46)
[2020-10-26] MEDS: Loratadine 10 MG TABLET PO SCH (08:30)
[2020-10-26] MEDS: Insulin DETEMIR 100 UNIT/ML X5UNITS SUBQ SCH ×2 (08:51→21:46)
[2020-10-26] MEDS: methocarbamoL 500 MG TABLET PO PRN (10:41)
[2020-10-27] MEDS: *HR* OxyCODONE Immed Rel 5 MG TABLET PO PRN ×2 (06:53→15:47)
[2020-10-27 07:02] VITALS: BP 148/74
[2020-10-27] MEDS: Insulin LISPRO 300 UNITS/3 ML VIAL SUBQ SCH ×3 (08:03→16:36)
[2020-10-27] MEDS: Insulin DETEMIR 100 UNIT/ML X5UNITS SUBQ SCH (08:30)
[2020-10-27] MEDS: Loratadine 10 MG TABLET PO SCH (08:31)
[2020-10-27] MEDS: Aspirin 81 MG TAB.CHEW PO SCH (08:31)
[2020-10-27] MEDS: Apixaban 5 MG TABLET PO SCH (08:32)
[2020-10-27] MEDS: Gabapentin 100 MG CAPSULE PO SCH ×2 (08:32→15:44)
[2020-10-27] MEDS: methocarbamoL 500 MG TABLET PO PRN (08:32)
[2020-10-27] MEDS: Sennosides/Docusate Sodium TABLET PO SCH (09:24)
== END 2020-10-27 18:35 | disposition home health service (06) | DRG 560 ==
LOC: INPPIK 10-21 12:20
PROVIDERS: ADMIT Family Medicine; ATTEND Family Medicine